=== PATIENT | female | born 1975 | race Caucasian/White ===

== ENCOUNTER 2019-06-10 17:51 | Emergency (ER) | payer SELFPAY ==
[~2019-06-10] VITALS: Ht 162.6 cm; Wt 70.0 kg
[2019-06-10 17:55] VITALS: BP 103/70
[2019-06-10] MEDS ORDERED: KETOROLAC 60MG/2ML VIAL IM ONE (18:45)
[2019-06-10 19:06] LABS: CLARITY URINE CLOUDY (CLEAR); KETONES URINE TRACE (NEGATIVE); LEUKOCYTE ESTERASE URINE 1+ (NEGATIVE); NITRITE URINE NEGATIVE (NEGATIVE); OCCULT BLOOD URINE 3+ (NEGATIVE); PROTEIN URINE 2+ (NEGATIVE); SPECIFIC GRAVITY URINE 1.005 (1.005-1.030); UROBILINOGEN URINE 0.2 E.U./dL (0.2-1.0)
[2019-06-10 19:07] LABS: COLOR URINE BLOODY (YELLOW)
== END 2019-06-10 19:43 | disposition home or self-care (01) ==
LOC: ER 17:51
DX: N94.6 Dysmenorrhea, unspecified (principal); M54.5 Low back pain
CPT/HCPCS: 81003; 81025; 87086; 96372; 99283; J1885